=== PATIENT | female | born 2000 | race Caucasian/White ===

== ENCOUNTER 2024-12-18 23:33 | Inpatient (IN) ==
[2024-12-19] MEDS: PENICILLIN GK 6 MU in DEXTROSE 5% 250 ML IV STA (00:38)
[2024-12-19] MEDS: LACTATED RINGER'S 1,000 ML IV PRN (00:38)
[2024-12-19 01:05] LABS: Hematocrit (blood only) 36.7 % (37.0-47.0); Hemoglobin 12.1 g/dl (12.0-16.0); Mean Corpuscular Hemoglobin 27.8 pg (25.0-34.0); Mean Corpuscular Volume 84.4 fL (80.0-100.0); Platelet Count 130 K/uL (130-400); RDW Standard Deviation 37.3 fL (36.4-46.3); Red Blood Count 4.35 M/uL (4.20-5.40); White Blood Count 8.63 K/ul (4.8-10.8)
--- NOTE | 2024-12-19 01:31 | Obstetrical Progress Note ---
Date of Service December 19, 2024 Assessment & Plan (1) premature rupture of membranes (PPROM) delivered, current hospitalization: Plan: 24-year-old G2, P1 at 36+ weeks with premature rupture of membranes. Arrival to labor and delivery PPROM is confirmed. Patient is grossly ruptured fluid is clear. heart rate is category 1. Wali irregularly. Exam by nurse showed patient has 5 cm dilated cephalic presentation. Patient has no GBS status is unknown she therefore has agreed to receive penicillin. Patient wishes to have unmedicated delivery. Admission and Anticipated Discharge Date Admission Date: December 19, 2024 Results & Data Vital Signs (Past 12 Hours) Vital Signs Temp Pulse Resp BP 12/18/24 23:54 36.6 C 80 18 114/65 12/18/24 23:47 80 114/65
[2024-12-19] MEDS: OXYTOCIN 30 UNITS/NSS 30 UNITS/500 ML BAG IV PRN (02:42)
[2024-12-19] MEDS ORDERED: OXYTOCIN 30 UNITS/NSS 30 UNITS/500 ML BAG IV PRN (02:53)
[2024-12-19] MEDS ORDERED: BENZOCAINE 20% SPRY 85 APPLN/85 GM CAN EXT PRN (02:53)
[2024-12-19] MEDS ORDERED: ACETAMINOPHEN 325 MG TAB PO PRN (02:53)
[2024-12-19] MEDS ORDERED: HYDROCORTISONE ACETATE 25 MG SUPP PR PRN (02:53)
[2024-12-19] MEDS ORDERED: DIPHTHER/TETAN/PERTUS Vaccine (Tdap, Adol/Adult) 0.5mL IM ONE (02:53)
--- NOTE | 2024-12-19 03:03 | Delivery Summary ---
Vaginal Delivery Summary Date of Service December 19, 2024 Vaginal Delivery Summary DELIVERY NOTE Patient delivered a live male in left occiput anterior presentation there was no nuchal cord. was delivered and placed on mother's abdomen. Delayed cord clamping was performed. Cord blood is obtained Cord gasses are not obtained Meconium is absent Placenta is spontaneously delivered. Placenta appears grossly normal and has 3 vessel cord Inspection of the perineum showed a first-degree midline laceration. Laceration is repaired with 2-0 Vicryl in layers Quantitative blood loss is 76 cc per Infants weight and scores are in the pediatric record Mother and baby are stable in in the recovery
[2024-12-19] MEDS ORDERED: PENICILLIN GK 3 MU in DEXTROSE 5% 100 ML IV PRN (03:14)
[2024-12-19] MEDS: LIDOCAINE 1% LOCAL 20 ML VIAL INFIL PRN (05:06)
[2024-12-19] MEDS: DOCUSATE SODIUM 100 MG CAP PO SCH (07:47)
[2024-12-19] MEDS: PRENATAL VITAMIN 1 TAB PO SCH (07:47)
[2024-12-19] MEDS: IBUPROFEN 600 MG TAB PO PRN (12:10)
[2024-12-19 16:25] VITALS: RESP 18; O2SAT 98
[2024-12-19 23:20] VITALS: TEMP 98.1
[2024-12-20 06:32] LABS: Hematocrit (blood only) 34.7 % (37.0-47.0); Hemoglobin 11.8 g/dl (12.0-16.0); Mean Corpuscular Hemoglobin 28.6 pg (25.0-34.0); Mean Corpuscular Volume 84.2 fL (80.0-100.0); Platelet Count 153 K/uL (130-400); RDW Standard Deviation 37.7 fL (36.4-46.3); Red Blood Count 4.12 M/uL (4.20-5.40); White Blood Count 11.13 K/ul (4.8-10.8)
[2024-12-20 07:43] VITALS: BP 95/70
--- NOTE | 2024-12-20 08:43 | Obstetrical Progress Note ---
Date of Service December 20, 2024 Assessment & Plan Admission and Anticipated Discharge Date Admission Date: December 19, 2024 Subjective Patient is seen and examined. She feels well, no complaints. Ambulating without dizziness Voiding without difficulty Tolerating regular diet with out N&V Bleeding is minimal No fever/ chills/ CP/ SOB/ N&V/ Leg pain Breast feeding without problems Vital Signs Temp Pulse Resp BP Pulse Ox O2 Del Method 12/20/24 07:41 36.7 C 70 18 95/70 L 98 Room Air 12/19/24 23:05 36.7 C 74 18 109/71 98 Room Air Lab Results 12/19/24 12/20/24 Range/Units 00:47 06:09 WBC 8.63 11.13 H (4.8-10.8) K/ul RBC 4.35 4.12 L (4.20-5.40) M/uL Hgb 12.1 11.8 L (12.0-16.0) g/dl Hct 36.7 L 34.7 L (37.0-47.0) % MCV 84.4 84.2 (80.0-100.0) fL MCH 27.8 28.6 (25.0-34.0) pg MCHC 33.0 34.0 (32.0-36.0) g/dL RDW Std Deviation 37.3 37.7 (36.4-46.3) fL RDW Coeff of Jarett 12.4 12.5 (11.5-14.5) % Plt Count 130 153 (130-400) K/uL MPV 8.5 L 8.6 L (9.4-12.4) fL Treponema pallidum Ab Negative (Negative) PE: General: Alert, orientedx3, NAD Abd: soft, NT, fundus firm, below Umbilicus Perineum intact, Lochia rubra minimal Ext; NT, no edema AP: 24 yo s/p , ppd# 1 VSS Afebrile doing well Continue routine care All questions were answered Desires d/c Discussed when to call D/C home , f/u in office Results & Data Vital Signs (Past 12 Hours) Vital Signs Temp Pulse Resp BP Pulse Ox O2 Del Method 12/20/24 07:41 36.7 C 70 18 95/70 L 98 Room Air 12/19/24 23:05 36.7 C 74 18 109/71 98 Room Air
[2024-12-20 12:51] VITALS: PULSE 80
== END 2024-12-20 13:36 | disposition home or self-care (01) | DRG 807 ==
LOC: OPB 23:33 → 4S1 23:35 → 4E2 12-19 06:31